=== PATIENT | female | born 1955 | race Caucasian/White ===

== ENCOUNTER → 2018-09-11 08:36 | Outpatient (CLI) | payer MEDICARE, MEDICAID, SELFPAY ==
--- NOTE | 2018-09-15 16:08 | PM.PFT.1 ---
Pulmonary Function Test Referral & Results Date Patient Seen: 09/11/18 Requesting provider: Christie Durbin Indication: R06.09 Results: The spirometry demonstrates an FVC of 2.8 L which is 82% of predicted. The FEV1 was measured at 2.31 L which is 86% of predicted. The FEV1/FVC ratio was 80 which is 102% of predicted. Following the administration of bronchodilator there was no appreciable change. Lung volumes show an SVC of 2.64 L which is 82% of predicted. The diffusing capacity was measured at 17.76 which is 65% of predicted. No hemoglobin value was provided, so no correction for potential anemia could be made, if appropriate. The maximum voluntary ventilation was reduced Interpretation: This study demonstrates mild obstructive lung disease based on reduction FEV1 without evidence of benefit after bronchodilator There is also mild reduction lung volumes suggesting mild restrictive lung disease There is more significant reduction in diffusing capacity suggesting more significant element of disease at the capillary alveolar level Clinical correlation suggested
== END ==
PROVIDERS: PCP Nurse Practitioner Gerontology; Visit Provider Internal Medicine Cardiovascular Disease
DX: R06.09 Other forms of dyspnea (principal)
CPT/HCPCS: 94060; 94726; 94729